=== PATIENT | female | born 1975 | race Two or more races ===

== ENCOUNTER 2017-05-02 16:53 | Emergency (ER) | payer MEDICAID ==
[~2017-05-02] VITALS: Ht 162.6 cm; Wt 75.7 kg
[2017-05-02 17:43] LABS: Basophils # (auto) 0 uL; Basophils % (auto) 0.2 % (0.0-2.0); Eosinophils # (auto) 0 uL; Eosinophils % (auto) 0.6 % (0.0-7.0); Hematocrit 45.4 % (36.0-46.0); Hemoglobin 15.2 g/dL (12.2-16.2); Lymphocytes # (auto) 0.3 uL; Lymphocytes % (auto) 3.7 % (10.0-50.0); Mean Corpuscular Hgb Conc. 33.5 g/dL (32.0-36.0); Mean Corpuscular Volume 86.5 fL (80.0-100.0); Monocytes # (auto) 0.2 uL; Monocytes % (auto) 2.8 % (0.0-12.0); Neutrophils # (auto) 7.1 uL; Neutrophils % (auto) 92.7 % (37.0-80.0); Platelet Count (auto) 355 10^3/uL (140-450); Red Blood Cells 5.25 10^6/uL (4.0-5.20); Red Cell Distribution Width 13.3 % (11.8-14.3); White Blood Cell 7.7 10^3/uL (4.4-10.8)
[2017-05-02 17:59] LABS: Albumin 3.9 g/dL (3.4-5.0); BUN/Creatinine Ratio 18.6; Bilirubin, Total 0.7 mg/dL (0.2-1.0); Calcium 8.9 mg/dL (8.5-10.1); Potassium 4.3 mmol/L (3.5-5.1); Total Protein 8.3 g/dL (6.4-8.2)
[2017-05-02 18:11] LABS: Urine Bacteria FEW /hpf (None Seen); Urine Blood Negative /uL (Negative); Urine Mucus FEW (None Seen); Urine Specific Gravity 1.033 (1.001-1.035); Urine WBC 2 /hpf (0 - 5)
[2017-05-02 20:09] LABS: Amylase 58 U/L (25-115); Lipase 293 U/L (73-393)
[2017-05-02] MEDS: SODIUM CHLORIDE 0.9% 1,000 ML IV ONE (23:29)
[2017-05-02] MEDS: ONDANSETRON HCL 4 MG/2 ML VIAL IV ONE (23:29)
[2017-05-03 00:37] VITALS: BP 132/86
== END 2017-05-03 00:38 | disposition home or self-care (01) ==
LOC: ER 16:53
DX: K52.9 Noninfective gastroenteritis and colitis, unspecified (principal); Z90.710 Acquired absence of both cervix and uterus; Z90.49 Acquired absence of other specified parts of digestive tract
CPT/HCPCS: 36415; 74176; 80053; 81001; 81025; 82150; 83690; 85025; 96361; 96374; 99285; J2405; J7030